=== PATIENT | female | born 1935 | race Caucasian/White ===

== ENCOUNTER 2016-11-30 16:47 | Emergency (ER) | payer MEDICARE ==
[2016-11-30 17:40] VITALS: BP 162/54
--- NOTE | 2016-11-30 18:00 | UC ---
Respiratory Complaint HPI - HPI Summary HPI Summary: cough x 3 days, cough is dry , mild clear sputum + nasal congestion, no fever, no chills - History of Current Complaint Chief Complaint: UCRespiratory Stated Complaint: COLD SYMPTOMS/COUGH Time Seen by Provider: 11/30/16 17:33 Hx Obtained From: Patient Onset/Duration: Gradual Onset, Lasting Days - 3, Still Present Timing: Constant Severity Initially: Moderate Severity Currently: Moderate Character: Cough: Productive - clear Aggravating Factors: Exertion, Deep Breaths Alleviating Factors: Nothing Associated Signs And Symptoms: Positive: URI, Nasal Congestion. Negative: Dyspnea, Fever, Chills, Pleuritic Chest Pain, Wheezing, Hemoptysis, Dizziness, Calf Pain, Calf Swelling, Edema, Hoarseness, Sinus Discomfort - Allergies/Home Medications Allergies/Adverse Reactions: Allergies Allergy/AdvReac Type Severity Reaction Status Date / Time Heparin Allergy Unknown Verified 11/30/16 17:42 Reaction Details Ticlopidine [From Ticlid] Allergy Unknown Verified 11/30/16 17:42 Reaction Details Home Medications: Home Medications GuaiFENesin DM* [Robitussin DM*] 5 ml PO Q6H PRN 11/30/16 [History Confirmed ] Menthol (Mouth-Throat) [Cough Drops] 7 mg MT DAILY PRN 11/30/16 [History Confirmed 11/30/16] PMH/Surg Hx/FS Hx/Imm Hx Cardiovascular History: Cardiac Disease, Pacemaker/ICD Respiratory History: Bronchitis, Pneumonia - Surgical History Surgical History: Yes Surgery Procedure, Year, and Place: 1 CARDIAC STENT,CATARACT. VALVE REPAIR, BIPASS, VALVE REPACEMENT IN FEBRUARY 2015. Gall bladder surgery 07/27. PACE MAKER PLACED 10/19/16 - Family History Known Family History: Positive: Cardiac Disease - Social History Alcohol Use: Rare Substance Use Type: None Smoking Status (MU): Never Smoked Tobacco Review of Systems Constitutional: Negative Skin: Negative Eyes: Negative ENT: Nasal Discharge Respiratory: Cough Cardiovascular: Negative Gastrointestinal: Negative All Other Systems Reviewed And Are Negative: Yes Physical Exam Triage Information Reviewed: Yes Appearance: Well-Appearing, No Pain Distress, Well-Nourished Vital Signs: Initial Vital Signs Temp 98.6 F 11/30/16 17:31 Pulse 80 11/30/16 17:31 Resp 20 11/30/16 17:31 BP 162/54 11/30/16 17:31 Pulse Ox 100 11/30/16 17:31 Vital Signs Reviewed: Yes Eyes: Positive: Conjunctiva Clear ENT: Positive: Normal ENT inspection, Hearing grossly normal, Pharynx normal Neck exam: Normal Neck: Positive: Supple, Nontender Respiratory: Positive: Chest non-tender, Lungs clear, Normal breath sounds, No respiratory distress Cardiovascular: Positive: RRR, No Murmur, Pulses Normal Abdominal Exam: Normal UC Diagnostic Evaluation - Laboratory O2 Sat by Pulse Oximetry: 100 Respiratory Course/Dx - Differential Dx/Diagnosis Provider Diagnoses: viral Bronchitis Discharge - Discharge Plan Condition: Stable Disposition: HOME Prescriptions: Benzonatate CAP* [Tessalon 100 MG CAP*] 100 mg PO TID PRN #21 cap PRN Reason: Cough Patient Education Materials: Cold Symptoms (ED) Referrals: Fanny Butler MD [Primary Care Provider] - If Needed
== END 2016-11-30 18:03 | disposition home or self-care (01) ==
LOC: UCCORT 16:47
DX: J20.8 Acute bronchitis due to other specified organisms (principal); I25.10 Atherosclerotic heart disease of native coronary artery without angina pectoris; Z95.5 Presence of coronary angioplasty implant and graft; Z95.2 Presence of prosthetic heart valve; Z95.0 Presence of cardiac pacemaker; Z90.49 Acquired absence of other specified parts of digestive tract
CPT/HCPCS: 99212; G0463

== ENCOUNTER 2016-12-09 19:13 | Emergency (ER) | payer MEDICARE ==
[2016-12-09 20:15] VITALS: BP 132/51
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
--- NOTE | 2016-12-09 21:10 | RAD ---
INDICATION: Left-sided rib pain x2 weeks COMPARISON: Rib x-rays dated July 20, 2015 TECHNIQUE: 3 views of the left ribs were obtained. FINDINGS: Postsurgical changes are unchanged from the previous radiograph. The external beam marker is noted overlying the left eighth rib. No fracture or significant focal osseous abnormality is seen. No pneumothorax is apparent. Limited views demonstrate grossly clear lungs. IMPRESSION: No radiographically apparent displaced rib fracture or pneumothorax. If the patient's symptoms persist, follow-up imaging is recommended.
== END 2016-12-09 21:33 | disposition home or self-care (01) ==
LOC: UCCORT 19:13
DX: R07.89 Other chest pain (principal); M81.0 Age-related osteoporosis without current pathological fracture; I11.9 Hypertensive heart disease without heart failure; Z95.0 Presence of cardiac pacemaker; Z95.5 Presence of coronary angioplasty implant and graft; Z95.2 Presence of prosthetic heart valve; Z88.8 Allergy status to other drugs, medicaments and biological substances
CPT/HCPCS: 99212; G0463